=== PATIENT | female | born 1960 | race Caucasian/White ===

== ENCOUNTER 2018-08-03 08:55 | Inpatient (IN) | payer OTHER ==
[2018-08-03] MEDS ORDERED: HEPARIN SODIUM,PORCINE 5,000 UNIT/ML 1 ML VIAL IV STA (09:00)
[2018-08-03] MEDS ORDERED: IV FLUID CONTINUATION 300 ML IV ONE (09:05)
[2018-08-03] MEDS ORDERED: SODIUM CHLORIDE 0.9% 1,000 ML IV ONE (09:06)
[2018-08-03] MEDS ORDERED: LIDOCAINE 1% INJ 10MG/ML (20 ML MDV) SQ ONE (09:10)
[2018-08-03] MEDS ORDERED: MIDAZOLAM 2 MG/2 ML VIAL ONE (09:11)
[2018-08-03] MEDS ORDERED: TICAGRELOR 90 MG TAB PO ONE (09:12)
[2018-08-03] MEDS ORDERED: MIDAZOLAM 2 MG/2 ML VIAL IVP ONE (09:12)
[2018-08-03] MEDS ORDERED: BIVALIRUDIN BOLUS 250 MG/50 ML IV ONE (09:19)
[2018-08-03] MEDS ORDERED: BIVALIRUDIN 250 MG in SODIUM CHLORIDE 0.9% 50 ML IV ONE (09:20)
[2018-08-03] MEDS ORDERED: NITROGLYCERIN 1000MCG/10ML SYRINGE INTRACORON ONE (09:29)
[2018-08-03 09:37] LABS: Basophils % (A) 0 %; Eosinophils # (A) 0.4 k/uL (0-0.7); Eosinophils % (A) 3 %; HCT 36.2 % (34.0-46.0); HGB 12.6 gm/dL (11.4-16.0); Lymphocytes % (A) 30 %; MCH 32.1 pg (25.0-35.0); MCHC 34.7 g/dL (31.0-37.0); MCV 92.3 fL (80.0-100.0); Mean Platelet Volume 7.1; Monocytes # (A) 0.6 k/uL (0-1.0); Monocytes % (A) 3 %; Neutrophils # (A) 10.6 k/uL (1.3-7.7); Neutrophils % (A) 63 %; Platelet Count 377 k/uL (150-450); RBC 3.92 m/uL (3.80-5.40); RDW 13.8 % (11.5-15.5); WBC 16.8 k/uL (3.8-10.6)
[2018-08-03] MEDS ORDERED: IOPAMIDOL-370 125ML BTL INJ ONE (09:37)
[2018-08-03] MEDS ORDERED: IOPAMIDOL-370 100ML BTL INJ ONE (09:44)
[2018-08-03 09:47] LABS: Prothrombin Time 67.2 sec (9.0-12.0)
[2018-08-03] MEDS ORDERED: RX INFO: IV CONTRAST WAS GIVEN 1 EACH MISC MISCELLANE PRN (09:50)
[2018-08-03] MEDS ORDERED: ATROPINE SULFATE 0.1 MG/ML 10ML SYRINGE IV PRN (09:50)
[2018-08-03] MEDS ORDERED: MAG HYDROX/AL HYDROX/SIMETH 30 ML CUP PO PRN (09:50)
[2018-08-03] MEDS ORDERED: NITROGLYCERIN SL TABS 0.4 MG TAB SUBLINGUAL PRN (09:50)
[2018-08-03] MEDS ORDERED: ZOLPIDEM 5 MG TAB PO PRN (09:50)
[2018-08-03 09:52] LABS: Albumin 3.1 g/dL (3.5-5.0); Calcium 8.3 mg/dL (8.4-10.2); Potassium 3.4 mmol/L (3.5-5.1); Total Bilirubin 0.3 mg/dL (0.2-1.3); Total Protein 5.9 g/dL (6.3-8.2)
[2018-08-03] MEDS ORDERED: SODIUM CHLORIDE 0.9% 1,000 ML IV SCH (10:00)
--- NOTE | 2018-08-03 10:01 | CC ---
CARDIAC CATHETERIZATION REPORT Mrs Renner is a 58-year-old female who was transferred to the emergency room because of the chest pain. EKG was suggestive of acute inferior wall myocardial infarction. In view of that, the patient was brought to the lab scientist for primary angioplasty. DESCRIPTION OF THE PROCEDURE: The right groin was prepped and draped in the usual manner. The skin was infiltrated with 2% Xylocaine. The right femoral artery was entered using Seldinger technique. A #6-Thai sheath was placed in. Selective coronary angiography was then performed in multiple projections and the left ventricular pressures were obtained. Patient tolerated the procedure well. HEMODYNAMICS: Left ventricular end-diastolic pressure is 24 mmHg prior to angiography. No gradient is noted across the aortic valve. SELECTIVE CORONARY ANGIOGRAPHY: Left main coronary artery is normal and patent. LAD is a good caliber blood vessel and gives rise to a good size diagonal branch. LAD and its branches are normal. Circumflex coronary artery is small and non dominant. Right coronary artery is a large caliber blood vessel, it is dominant in distribution, has a 99% stenosis with evidence of . FINAL IMPRESSION: There is 99% stenosis in the proximal RCA. The LAD is normal. Circumflex coronary artery is nondominant. RECOMMENDATION: Proceed with a stent to the RCA. MMODL / IJN: [id number] /
--- NOTE | 2018-08-03 10:01 | CONS ---
CONSULTATION Mrs Renner is a 58-year-old female who was brought by ambulance to the emergency room because of the chest pain. The EKG done by EMS was suggestive of acute inferior wall myocardial infarction. The patient had received fentanyl, heparin and aspirin in the ambulance. This patient denies any prior cardiac history of myocardial infarction. She does have a history of smoking more than 1 pack per day. History of hypertension. She does not know about any cholesterol. She does not have any strong family history of coronary artery disease. PAST MEDICAL HISTORY: No history of any major surgeries. Denies any history of GI or bleeding. Denies any history of a stroke. REVIEW OF THE SYSTEM: Otherwise unremarkable. PHYSICAL EXAMINATION: At present, a 58-year-old, thinly built female who has been having a pain and 9/10. The heart rate is 50 per minute, blood pressure is 120/80 mmHg. HEENT examination is negative. Neck is supple. There is no increase in jugular venous pressure. Both the carotid pulses are felt. There is no bruit. Chest is symmetrical. Heart the PMI is not felt. First and second heart sounds are normal. There is no evidence of any murmur. Lungs are clinically clear to auscultation and percussion. Abdomen is soft. Liver and spleen are not enlarged. Bowel sounds are heard. EXTREMITIES: Peripheral pulsations are 2+ EKG shows normal sinus rhythm with a ST-segment elevation in the inferior lateral leads. FINAL IMPRESSION: Extensive inferior lateral myocardial infarction. RECOMMENDATION: Proceed for cardiac catheterization and primary angioplasty. MMODL / IJN: [id number] /
[2018-08-03 10:07] LABS: INR 7.3 (<1.2)
--- NOTE | 2018-08-03 10:07 | PTCA ---
PERCUTANEOUSTRANS CORORONARY ANGIOGRAPHY Mrs. Renner is a 58-year-old female with history of hypertension, chronic tobacco use, who presented with symptoms of chest discomfort and EKG changes consistent with inferior wall myocardial infarction. She underwent cardiac catheterization by Dr. Jean Lobo, which was found to have subtotally occluded mid right coronary artery. In view of that, recommendation made regarding coronary angioplasty. The procedures, risks and complication were discussed with the patient who is in full understanding and agreement. PROCEDURE: A 6-Macedonian FR4 guiding catheter was introduced into the system after cannulating the right coronary ostium, a 0.014 balanced medium weight J-wire was advanced and positioned distally. Following that, a 3.25 x 18 mm Xience CR stent was deployed, postdilated at 16 atmospheres. Following that, the balloon was removed and a 3.5 x 15 mm NC Trek balloon was advanced and one inflation at 14 atmospheres was done. After the last inflation, after appropriate wait, the balloon and the guidewire were withdrawn back in the guiding catheter. Images were obtained and repeated. Those images reveal stable successful stenting. At that point, the guiding catheter, the balloon and the guidewire were removed. The sheath was removed. Hemostasis was obtained with deployment of Angio-Seal. There was no immediate complication. Patient is returned to her room in stable condition. Of note, patient's chest discomfort resulted in procedure. She received Angiomax per protocol as well as oral loading dose of Brilinta. The EKG ST-segment elevation, resolved. RESULTS: Successful stenting of the mid right coronary artery with reduction of stenosis from 99% to 0%. RECOMMENDATION: Patient will be continued on aspirin, Brilinta, beta mariela, REBECCA inhibitor, and statin. The importance of dual antiplatelet treatment were discussed with the patient and she is in full understanding and agreement. I emphasized to her the importance of smoking cessation. MMODL / IJN: [id number] /
[2018-08-03 10:09] LABS: Creatine Kinase MB 0.9 ng/mL (0.0-2.4); Troponin I 0.031 ng/mL (0.000-0.034)
[2018-08-03 10:15] LABS: Glucose,Whole Blood 144 mg/dL (75-99)
[2018-08-03 13:20] VITALS: BMI 28.7
--- NOTE | 2018-08-03 13:26 | ED ---
Chest Pain HPI - General Stated Complaint: STEMI Time Seen by Provider: 08/03/18 08:55 Source: patient, EMS, RN notes reviewed Mode of arrival: EMS - History of Present Illness Initial Comments: This is a 58-year-old female with a benign history other than a smoker no prior cardiac history who had the onset this morning of retrosternal chest pain it radiates to the left arm. She states was 10/10 severity she was brought in by EMS as STEMI alert was called as the patient has to elevations in leads 23 aVF in addition to some anterolateral leads. She also had depression in aVL and the the leads. Patient was given IV fluids and pain medication with the pain down to 5/10. Dr. Lobo did respond . The patient went to Bed #3 after 5000 units of heparin was started in the emergency department. No other labs are treatment was given. MD Complaint: chest pain - Related Data Home Medications Medication Instructions Recorded Confirmed Atenolol [Tenormin] 25 mg PO HS 08/03/18 08/03/18 Triamterene-Hctz 37.5-25Mg 1 cap PO DAILY 08/03/18 08/03/18 [Dyazide 37.5-25 Capsule] amLODIPine [Norvasc] 10 mg PO HS 08/03/18 08/03/18 Allergies Allergy/AdvReac Type Severity Reaction Status Date / Time No Known Allergies Allergy Verified 08/03/18 11:55 Review of Systems ROS Statement: Those systems with pertinent positive or pertinent negative responses have been documented in the HPI. ROS Other: All systems not noted in ROS Statement are negative. EKG Findings - EKG Results: EKG: interpreted by ERMD (EKG provided by EMS did show ST elevations in leads II , III, and F aVF also some evidence of posterior lateral involvement. SD was 0.170 QRS 0.128 QT since QTC 440/416) Past Medical History Past Medical History: Coronary Artery Disease (CAD), Chest Pain / Angina, Hypertension Additional Past Medical History / Comment(s): CIGARETTE SMO[employer] 1PPD History of Any Multi-Drug Resistant Organisms: None Reported Past Surgical History: Breast Surgery, Section, Cholecystectomy, Heart Catheterization With Stent, Hysterectomy Additional Past Surgical History / Comment(s): RIGHT BREAST LUMPECTOMY, STENTS 08/03/18. Past Anesthesia/Blood Transfusion Reactions: No Reported Reaction Date of Last Stent Placement:: 08/03/18 Past Psychological History: No Psychological Hx Reported Smoking Status: Current every day smoker Past Alcohol Use History: None Reported Additional Past Alcohol Use History / Comment(s): 1PPD Past Drug Use History: None Reported Course Vital Signs 08/03/18 08/03/18 08/03/18 10:02 10:11 10:30 Temperature 97.6 F 97.6 F Pulse Rate 82 77 Respiratory 10 L 12 Rate Blood Pressure 132/78 O2 Sat by Pulse 93 L 92 L Oximetry Chest Pain MDM - MDM Patient went almost directed 5 after registration and IV heparin be started in emergency department. Disposition Clinical Impression: ST elevation myocardial infarction (STEMI) Disposition: ADMITTED IP TO THIS HOSP Condition: Critical
--- NOTE | 2018-08-03 14:55 | HP ---
HISTORY AND PHYSICAL CHIEF COMPLAINT: This is a 58-year-old female with a benign history other than smoking who came into the hospital with retrosternal chest pain radiating to the left arm, 06/27. STEMI alert was called. She was taken for PTCA cardiac catheter in the prosthetics lab technician and a stent was placed in the right coronary artery, 95% blockage down to zero. She is in the ICU at this time. She is stabilized. Her home medications are Tenormin, Norvasc and Dyazide. REVIEW OF SYSTEMS: Fourteen-point review of systems negative except for as mentioned in HPI. ALLERGIES: NEGATIVE. EKG in the ER showed ST elevations in 2, 3, AVF. PAST MEDICAL HISTORY: 1. Coronary artery disease. 2. Angina. 3. Hypertension. 4. She smokes one pack a day. 5. History of breast surgery. 6. . 7. Cholecystectomy. 8. Heart catheterization with stent. 9. Hysterectomy. 10.Right breast lumpectomy. 11.Stents as mentioned today. She is a current everyday smoker. No alcohol or illicit drugs. PHYSICAL EXAMINATION: Blood pressure is 132/78, oxygen 92% to 93%, pulse 77 to 82, temperature 97.6. CARDIOVASCULAR: S1, S2. LUNGS: Clear. GI: Soft. HEMATOLOGY: Negative Homans. PSYCH: Fair mood and affect. ASSESSMENT: 1. ST-elevation myocardial infarction. 2. History of coronary artery disease. 3. Hypertension. 4. Nicotine addiction. Risk factor modification status post stent will be done. Possible discharge in the next 24 to 48 hours. She came to the hospital with INR of 7.3, but despite this she was stented and will be followed up. Will check for diabetes and high cholesterol while here in the hospital. MMODL / IJN: [id number] /
[2018-08-03 20:34] LABS: Hemoglobin A1C 5.8 % (4.0-6.0)
[2018-08-03] MEDS: NICOTINE 21MG/24HR PATCH TRANSDERM SCH (20:35)
[2018-08-03] MEDS: ATORVASTATIN 80 MG TAB PO SCH (20:36)
[2018-08-03] MEDS: METOPROLOL TARTRATE 25 MG TAB PO SCH (20:36)
[2018-08-04 05:53] LABS: HCT 43.2 % (34.0-46.0); HGB 14.7 gm/dL (11.4-16.0); MCH 31.1 pg (25.0-35.0); MCHC 34.1 g/dL (31.0-37.0); MCV 91.2 fL (80.0-100.0); Platelet Count 401 k/uL (150-450); RBC 4.74 m/uL (3.80-5.40); RDW 13.7 % (11.5-15.5); WBC 13.6 k/uL (3.8-10.6)
[2018-08-04 06:00] LABS: Prothrombin Time 10.1 sec (9.0-12.0)
[2018-08-04 06:22] LABS: Anion Gap 7 mmol/L; Blood Urea Nitrogen 13 mg/dL (7-17); Calcium 9.6 mg/dL (8.4-10.2); Carbon Dioxide 25 mmol/L (22-30); Chloride 105 mmol/L (98-107); Cholesterol 286 mg/dL (<200); Glucose 127 mg/dL (74-99); HDL Cholesterol 36 mg/dL (40-60); LDL Cholesterol,Calculated 209 mg/dL (0-99); Magnesium 2.2 mg/dL (1.6-2.3); Potassium 4.3 mmol/L (3.5-5.1); Sodium 137 mmol/L (137-145); Triglycerides 205 mg/dL (<150)
[2018-08-04] MEDS: METOPROLOL TARTRATE 25 MG TAB PO SCH ×2 (08:55→21:32)
[2018-08-04] MEDS: NICOTINE 21MG/24HR PATCH TRANSDERM SCH (08:55)
[2018-08-04] MEDS: TICAGRELOR 90 MG TAB PO SCH ×2 (08:55→21:32)
[2018-08-04] MEDS: ASPIRIN 81 MG PO SCH (08:55)
[2018-08-04] MEDS: LISINOPRIL 5 MG TAB PO SCH (08:55)
--- NOTE | 2018-08-04 13:03 | P.PN ---
Subjective Progress Note Date: 08/04/18 This is a 58-year-old female who was admitted to the hospital with inferior wall myocardial infarction and had stent placement RCA by Dr. Reynoso. Patient has been doing well since yesterday. Denies any chest pain, shortness of breath or dizziness. Her groin is soft. Echo Cardigan showed severe hypokinesis of the anteroapical and mid and apical septal area with ejection fraction of 35%. Her lungs are clear. Heart is regular. Groin is soft. Patient activity to be increased. Patient will be transferred to telemetry unit. Her lab work showed a hemoglobin of 14.7. White count is 13,000. Electrolytes are normal. Objective - Vital Signs Vital signs: Vital Signs Temp 98.0 F 08/04/18 08:00 Pulse 75 08/04/18 12:00 Resp 18 08/04/18 12:00 BP 134/69 08/04/18 12:00 Pulse Ox 95 08/04/18 12:00 Intake & Output 08/03/18 08/04/18 08/04/18 18:59 06:59 18:59 Intake Total 1193 250 0 Output Total 2900 1700 0 Balance -1707 -1450 0 Weight 68.9 kg 61.4 kg Intake: IV 1193 0 0 Sodium Chloride 0.9% 1, 900 0 0 000 ml @ 100 mls/hr IV . Q10H MARCOS Rx#:[id number] Oral 250 Output: Urine 2900 1700 0 Other: # Voids 1 # Bowel Movements 1 - Exam GENERAL EXAM: Patient is alert and oriented and doesn't appear to be in any acute distress HEENT: Normocephalic. Normal reaction of pupils, equal size, normal range of extraocular motion. No erythema or exudates in the throat. NECK: No masses, no nuchal rigidity. CHEST: No chest wall deformity. LUNGS: Equal air entry with no crackles or wheeze. HEART: S1 and S2 normal with no audible mumurs or gallops. Regular rhythm, femorals equal on both sides.. ABDOMEN: No hepatosplenomegaly, normal bowel sounds, no guarding or rigidity. SKIN: No rashes CENTRAL NERVOUS SYSTEM: No focal deficits. EXTREMITIES: No cyanosis, clubbing or edema. PUNCTURE SITE: Soft without any hematoma - Labs CBC & Chem 7: 08/04/18 04:57 08/04/18 04:57 Labs: Abnormal Lab Results - Last 24 Hours (Table) 08/03/18 08/03/18 08/04/18 Range/Units 14:39 20:57 04:57 WBC (3.8-10.6) k/uL Glucose 127 H (74-99) mg/dL Troponin I 48.600 H* 57.600 H* (0.000-0.034) ng/mL Triglycerides 205 H (<150) mg/dL Cholesterol 286 H (<200) mg/dL LDL Cholesterol, Calc 209 H (0-99) mg/dL HDL Cholesterol 36 L (40-60) mg/dL 08/04/18 08/04/18 Range/Units 04:57 04:57 WBC 13.6 H (3.8-10.6) k/uL Glucose (74-99) mg/dL Troponin I 32.100 H* (0.000-0.034) ng/mL Triglycerides (<150) mg/dL Cholesterol (<200) mg/dL LDL Cholesterol, Calc (0-99) mg/dL HDL Cholesterol (40-60) mg/dL Assessment and Plan (1) Hypertension Current Visit: Yes Status: Acute Code(s): I10 - ESSENTIAL (PRIMARY) HYPERTENSION SNOMED Code(s): 81580488 (2) ST elevation myocardial infarction (STEMI) Current Visit: Yes Status: Acute Code(s): I21.3 - ST ELEVATION (STEMI) MYOCARDIAL INFARCTION OF [facility] [[email or web address]] SITE SNOMED Code(s): 839523900 Plan: Patient will continue current medical therapy with beta blockers, aspirin length and a lipid-lowering agent. Increase activity. Possible discharge within 48 hours. I
--- NOTE | 2018-08-04 16:51 | PN ---
PROGRESS NOTE This is a white female complaining of some diarrhea, 4 to 5 bowel movements a day. We are going to check stool for C difficile. We will give Imodium and possibly Lomotil if C difficile is negative. She is status post PTCA from Cardiology. Hemoglobin is 14.7, white count 13,000. Temperature 98, pulse 75, respiratory rate 16 to 18, blood pressure 134/69. LUNGS: Clear. CARDIOVASCULAR: S1, S2. ASSESSMENT: 1. Hypertension. 2. Diarrhea, unclear etiology. 3. [id number] myocardial infarction. Continue Imodium, Lomotil. Stool culture. Check electrolytes. Leukocytosis is down from 16 to 13. Please see further orders in chart. ICU time 20 minutes. MMODL / IJN: [id number] /
[2018-08-04] MEDS: LOPERAMIDE 2 MG CAP PO PRN (18:15)
[2018-08-04] MEDS: ATORVASTATIN 80 MG TAB PO SCH (21:32)
[2018-08-05] MEDS: LOPERAMIDE 2 MG CAP PO PRN ×4 (00:06→19:22)
[2018-08-05] MEDS: LISINOPRIL 5 MG TAB PO SCH (08:14)
[2018-08-05] MEDS: METOPROLOL TARTRATE 25 MG TAB PO SCH ×2 (08:14→20:07)
[2018-08-05] MEDS: TICAGRELOR 90 MG TAB PO SCH ×2 (08:14→20:07)
[2018-08-05] MEDS: ASPIRIN 81 MG PO SCH (08:14)
[2018-08-05] MEDS: NICOTINE 21MG/24HR PATCH TRANSDERM SCH (08:14)
[2018-08-05 08:18] LABS: Basophils # (A) 0.1 k/uL (0-0.2); Basophils % (A) 0 %; Eosinophils # (A) 0.1 k/uL (0-0.7); Eosinophils % (A) 1 %; HGB 15.5 gm/dL (11.4-16.0); Lymphocytes # (A) 3.1 k/uL (1.0-4.8); Lymphocytes % (A) 20 %; MCH 30.5 pg (25.0-35.0); MCHC 33.6 g/dL (31.0-37.0); MCV 90.8 fL (80.0-100.0); Mean Platelet Volume 7.2; Monocytes % (A) 6 %; Neutrophils # (A) 10.9 k/uL (1.3-7.7); Neutrophils % (A) 71 %; Platelet Count 427 k/uL (150-450); RBC 5.07 m/uL (3.80-5.40); RDW 13.5 % (11.5-15.5); WBC 15.4 k/uL (3.8-10.6)
[2018-08-05 08:20] LABS: Anion Gap 12 mmol/L; Blood Urea Nitrogen 18 mg/dL (7-17); Calcium 9.8 mg/dL (8.4-10.2); Carbon Dioxide 23 mmol/L (22-30); Chloride 106 mmol/L (98-107); Glucose 131 mg/dL (74-99); Sodium 141 mmol/L (137-145)
--- NOTE | 2018-08-05 08:50 | ECHOF ---
Referral Reason:mi MEASUREMENTS -------- HEIGHT: 154.9 cm WEIGHT: 61.2 kg BP: 128/97 IVSd: 1.0 cm (0.6 - 1.1) LVIDd: 2.8 cm (3.9 - 5.3) LVPWd: 1.3 cm (0.6 - 1.1) IVSs: 1.4 cm LVIDs: 2.2 cm LVPWs: 1.4 cm Ao Diam: 2.4 cm (2.0 - 3.7) AV Cusp: 1.3 cm (1.5 - 2.6) LA Diam: 1.9 cm (2.7 - 3.8) MV EXCURSION: 12.148 mm (> 18.000) MV EF SLOPE: 44 mm/s (70 - 150) EPSS: 1.3 cm MV E Juventino: 0.63 m/s MV DecT: 85 ms MV A Ju[place]ino: 0.87 m/s MV E/A Ratio: 0.72 RAP: 5.00 mmHg RVSP: 7.91 mmHg FINDINGS -------- Sinus rhythm. This was a technically difficult study with suboptimal views. The left ventricular size is normal. There is borderline concentric left ventricular hypertrophy. Overall left ventricular systolic function is mildly impaired with, an EF between 45 - 50 %. Basal inferior LV wall motion is normal. Basal inferoseptal LV wall motion is normal. The right ventricle is normal in size and function. The left atrium is normal in size. The right atrium is normal in size. xx ml of Lumason was utilized for enhancement of images. The aortic valve is trileaflet, and appears structurally normal. No aortic stenosis or regurgitation. There is trace mitral regurgitation. Trace tricuspid regurgitation present. The right ventricular systolic pressure, as measured by Dopp ler, is 7.91mmHg. Pulmonic valve appears structurally normal. The aortic root size is normal. The pericardium is normal. CONCLUSIONS -------- 1. Sinus rhythm. 2. This was a technically difficult study with suboptimal views. 3. The left ventricular size is normal. 4. There is borderline concentric left ventricular hypertrophy. 5. Basal inferior LV wall motion is normal. 6. Basal inferoseptal LV wall motion is normal. 7. The right ventricle is normal in size and function. 8. The left atrium is normal in size. 9. The right atrium is normal in size. 10. xx ml of Lumason was utilized for enhancement of images. 11. The aortic valve is trileaflet, and appears structurally normal. No aortic stenosis or regurgitat ion. 12. There is trace mitral regurgitation. 13. Trace tricuspid regurgitation present. 14. The right ventricular systolic pressure, as measured by Doppler, is 7.91mmHg. 15. Pulmonic valve appears structurally normal. 16. The aortic root size is normal. 17. The pericardium is normal. SEAT PACK INSPECTOR: Mikayla Hardy RDCS
--- NOTE | 2018-08-05 14:05 | P.PN ---
Subjective Progress Note Date: 08/05/18 This is a 58-year-old female who was admitted to the hospital with inferior wall myocardial infarction and had stent placement RCA by Dr. Reynoso. Patient has been doing well since yesterday. Denies any chest pain, shortness of breath or dizziness. Her groin is soft. Echo Cardigan showed severe hypokinesis of the anteroapical and mid and apical septal area with ejection fraction of 35%. Her lungs are clear. Heart is regular. Groin is soft. Patient activity to be increased. Patient will be transferred to telemetry unit. Her lab work showed a hemoglobin of 14.7. White count is 13,000. Electrolytes are normal. 08/05: Patient denies any chest pain at this time, no shortness of breath, no lightheadedness or dizziness. Triglycerides 205, cholesterol 286, LDL 209 and HDL 36. C. difficile toxin was negative. Plan to continue current medications and possible discharge tomorrow. Objective - Vital Signs Vital signs: Vital Signs Temp 97.8 F 08/05/18 07:44 Pulse 94 08/05/18 07:46 Resp 18 08/05/18 07:46 BP 110/74 08/05/18 07:44 Pulse Ox 94 L 08/05/18 07:44 Intake & Output 08/04/18 08/05/18 08/05/18 18:59 06:59 18:59 Intake Total 460 760 Output Total 0 Balance 460 760 Weight 60.8 kg Intake: IV 0 Sodium Chloride 0.9% 1, 0 000 ml @ 100 mls/hr IV . Q10H MARCOS Rx#:[id number] Oral 460 760 Output: Urine 0 Other: Voiding Method Toilet Toilet Toilet # Voids 1 1 # Bowel Movements 1 1 - Exam GENERAL EXAM: Patient is alert and oriented she is sitting up in a chair and does not appear to be in any acute distress HEENT: Normocephalic. Normal reaction of pupils, equal size, normal range of extraocular motion. No erythema or exudates in the throat. NECK: No masses, no nuchal rigidity. CHEST: No chest wall deformity. LUNGS: Equal air entry with no crackles or wheeze. HEART: S1 and S2 normal with no audible mumurs or gallops. Regular rhythm, femorals equal on both sides.. ABDOMEN: No hepatosplenomegaly, normal bowel sounds, no guarding or rigidity. SKIN: No rashes CENTRAL NERVOUS SYSTEM: No focal deficits. EXTREMITIES: No cyanosis, clubbing or edema. PUNCTURE SITE: Soft without any hematoma - Labs CBC & Chem 7: 08/05/18 07:25 08/05/18 07:25 Labs: Abnormal Lab Results - Last 24 Hours (Table) 08/05/18 08/05/18 Range/Units 07:25 07:25 WBC 15.4 H (3.8-10.6) k/uL Neutrophils # 10.9 H (1.3-7.7) k/uL BUN 18 H (7-17) mg/dL Glucose 131 H (74-99) mg/dL Assessment and Plan Plan: Inferior lateral myocardial infarction status post heart catheterization Hypertension. Hyperlipidemia. Tobacco use and dependence Plan: Continue aspirin 81 mg daily, Lipitor 80 mg at bedtime, lisinopril 5 mg daily, Lopressor 25 mg twice daily, Brilinta 90 mg twice daily. Continue nicotine patch. Continue cardiac monitoring. Possible discharge tomorrow. Nurse Practitioner note has been reviewed, I agree with a documented findings and plan of care. Patient was seen and examined.
[2018-08-05] MEDS: ATORVASTATIN 80 MG TAB PO SCH (20:07)
--- NOTE | 2018-08-05 23:32 | PN ---
PROGRESS NOTE DATE OF SERVICE: 08/05/2018. HISTORY: She has no chest pain or shortness of breath and is doing fair overall. PHYSICAL EXAMINATION: Respiratory rate is 18, pulse rate of 92, temperature 98 degrees Fahrenheit, blood pressure 112/82. HEENT is unremarkable. Chest is clear. Cardiovascular system is S1, S2. Abdomen is soft. There is no edema. LABS: Reveal a white count of 16.4, hemoglobin of 15.5, troponin of 32.1. IMPRESSION: 1. Acute myocardial infarction status post primary angioplasty. 2. Hypertension. 3. Diarrhea. PLAN: Continue her on the current medications which were reviewed. Increase activity level. As she is asymptomatic and doing better, discharge planning is possibly for tomorrow. MMODL / IJN: [id number] /
[2018-08-06] MEDS: ASPIRIN 81 MG PO SCH (07:59)
[2018-08-06] MEDS: LISINOPRIL 5 MG TAB PO SCH (07:59)
[2018-08-06] MEDS: METOPROLOL TARTRATE 25 MG TAB PO SCH (07:59)
[2018-08-06] MEDS: TICAGRELOR 90 MG TAB PO SCH (07:59)
[2018-08-06] MEDS: NICOTINE 21MG/24HR PATCH TRANSDERM SCH (07:59)
[2018-08-06 12:32] VITALS: BP 90/52; PULSE 71; RESP 16; TEMP 98.2
[2018-08-06] MEDS ORDERED: EZETIMIBE 10 MG TAB PO SCH (14:15)
--- NOTE | 2018-08-06 15:26 | P.PN ---
Subjective Progress Note Date: 08/06/18 This is a 58-year-old female who was admitted to the hospital with inferior wall ST elevation myocardial infarction and had stent placement to the RCA . Echocardiogram with Doppler study was performed which revealed an ejection fraction of 45-50%. Blood pressure today 90/50 with a heart rate in the 70s, 96 % on room air. White blood cell count 15.4, hemoglobin 15.5, platelet count 427. Sodium 141, potassium 4.0, BUN 18 and creatinine 0.8. Patient is currently on aspirin 81 mg daily, Lipitor 80 mg daily, Zetia 10 mg daily, lisinopril 5 mg daily, metoprolol 25 mg twice a day, nicotine patch, Brilinta 90 mg twice a day and sublingual nitroglycerin as needed for chest pain. Cholesterol level came back to be 286, triglycerides 205, LDL 209 and HDL 36. 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 Sodium was added today.Zetia was added today. Objective - Vital Signs Vital signs: Vital Signs Temp 98.2 F 08/06/18 12:00 Pulse 71 08/06/18 12:00 Resp 16 08/06/18 12:00 BP 90/52 08/06/18 12:00 Pulse Ox 96 08/06/18 12:00 Intake & Output 08/05/18 08/06/18 08/06/18 18:59 06:59 18:59 Intake Total 2120 740 Output Total 600 Balance 2120 140 Weight 61.1 kg Intake: IV 10 Invasive Line 1 10 Oral 2110 740 Output: Urine 600 Other: Voiding Method Toilet Toilet Toilet # Voids 2 1 - Exam PHYSICAL EXAMINATION: GENERAL: 58-year-old female in no acute distress at the time of my examination HEENT: Head is atraumatic, normocephalic. Pupils equal, round. Sclera anicteric. Conjunctiva are clear. Mucous membranes of the mouth are moist. Neck is supple. There is no elevated jugular venous pressure.] bruit is heard. HEART EXAMINATION: Heart S1, S2 normal. No murmur or gallop heard. CHEST EXAMINATION: Lungs are clear to auscultation and precussion. No chest wall tenderness is noted on palpation or with deep breathing. ABDOMEN: Soft, nontender. Bowel sounds are heard. No organomegaly noted. EXTREMITIES: 2+ peripheral pulses with no evidence of peripheral edema and no calf tenderness noted. NEUROLOGIC patient is awake, alert and oriented ?-3. . - Labs CBC & Chem 7: 08/05/18 07:25 08/05/18 07:25 Assessment and Plan Plan: Assessment and plan #[address] elevation myocardial infarction, status post angioplasty and stenting of the right coronary artery #2 hypertension #3 hyperlipidemia #4 nicotine dependence Plan Cardiology's perspective, patient may be able to be discharged home today. We will add Zetia 10 mg daily to her medication regime. Continue aspirin 81 mg daily, Brilinta 90 mg twice a day, Lipitor 80 mg daily, lisinopril 5 mg daily, Lopressor 25 mg twice a day, nicotine patch, and sublingual nitroglycerin as needed for chest pain. Follow-up appointment in the office with Dr. VC Lobo in one week. DNP note has been reviewed, I agree with a documented findings and plan of care. Patient was seen and examined.
--- NOTE | 2018-08-06 16:15 | CONS ---
CONSULTATION This patient is status post acute inferior wall myocardial infarction. Patient is doing fairly well. Denies any chest pain. Denies any shortness of breath. Patient's medical record was reviewed. Heart rate is 71 per minute, blood pressure 90/60 mmHg. First and second heart sounds are normal. Lungs are clinically clear to auscultation and percussion. Echocardiogram reveals small area of inferobasal and inferoseptal hypokinesia. We will continue the patient on current medications. MMODL / IJN: [id number] /
== END 2018-08-06 18:25 | disposition home or self-care (01) | DRG 247 ==
LOC: EC 08:55 → 2SICU 09:55 → 3SCARD 08-04 18:19
PROVIDERS: ADMIT Family Medicine; ATTEND Family Medicine
PROC: B2111ZZ Fluoroscopy of Multiple Coronary Arteries using Low Osmolar Contrast (ICD-10-PCS; 2018-08-03)
PROC: 027034Z Dilation of Coronary Artery, One Artery with Drug-eluting Intraluminal Device, Percutaneous Approach (ICD-10-PCS; principal; 2018-08-03 09:05)
PROC: 4A023N7 Measurement of Cardiac Sampling and Pressure, Left Heart, Percutaneous Approach (ICD-10-PCS; 2018-08-03 09:05)
DX: I21.19 ST elevation (STEMI) myocardial infarction involving other coronary artery of inferior wall (principal); D72.829 Elevated white blood cell count, unspecified; E78.5 Hyperlipidemia, unspecified; F17.210 Nicotine dependence, cigarettes, uncomplicated; F32.9 Major depressive disorder, single episode, unspecified; I10 Essential (primary) hypertension; I25.10 Atherosclerotic heart disease of native coronary artery without angina pectoris; R19.7 Diarrhea, unspecified; Z79.899 Other long term (current) drug therapy; Z90.710 Acquired absence of both cervix and uterus; Z90.49 Acquired absence of other specified parts of digestive tract; Z71.6 Tobacco abuse counseling
CPT/HCPCS: 36415; 80048; 80053; 80061; 82550; 82553; 83036; 83735; 84443; 84484; 85025; 85027; 85610; 87324; 93306; 93458; C1874

== ENCOUNTER → 2018-11-02 | Outpatient (CLI) | payer OTHER | LOC: LABWHC1 09:24 | PROVIDERS: ATTEND Internal Medicine Cardiovascular Disease | DX: I25.10 Atherosclerotic heart disease of native coronary artery without angina pectoris (principal) | CPT/HCPCS: 36415; 83704 ==

== ENCOUNTER 2019-03-27 11:22 | Emergency (ER) | payer OTHER ==
[2019-03-27] MEDS ORDERED: KETOROLAC 60 MG/2 ML VIAL IM STA (11:44)
--- NOTE | 2019-03-27 12:08 | ED ---
Abdominal Pain HPI - General Chief Complaint: Abdominal Pain Stated Complaint: abdominal pain, lower back pain Time Seen by Provider: 03/27/19 11:31 Source: patient Mode of arrival: ambulatory Limitations: no limitations - History of Present Illness Initial Comments: Patient is a 59-year-old female presenting to emergency Department with complaints of lower abdominal pain that started yesterday. Patient describes the pain as severe cramping with radiation to the right lower back. Patient states her lower back does not hurt to the touch. Patient's last menstrual cycle was about 15 years ago. Patient denies any urinary complaints at this time other than increase in frequency, but she states she has been drinking a lot of water. Patient denies nausea, vomiting, diarrhea, chest pain, shortness of breath. Patient has past abdominal surgical history of 2 C-sections, cholecystectomy, and partial hysterectomy. Patient's last bowel movement was today and was normal. No other complaints at this time. Patient states she took an ibuprofen yesterday with mild relief. - Related Data Previous Rx's Medication Instructions Recorded Aspirin 81 mg PO DAILY #30 chew 08/06/18 Atorvastatin [Lipitor] 80 mg PO HS #30 tab 08/06/18 Ezetimibe [Zetia] 10 mg PO DAILY tab 08/06/18 Ezetimibe [Zetia] 10 mg PO DAILY #30 tab 08/06/18 Lisinopril [Zestril] 5 mg PO DAILY #30 tab 08/06/18 Metoprolol Tartrate [Lopressor] 25 mg PO BID #60 tab 08/06/18 Nicotine 21Mg/24Hr Patch [Habitrol] 1 patch TRANSDERM DAILY #30 patch 08/06/18 Nitroglycerin Sl Tabs [Nitrostat] 0.4 mg SUBLINGUAL Q5M PRN #25 tab 08/06/18 Ticagrelor [Brilinta] 90 mg PO BID #60 tab 08/06/18 Zolpidem [Ambien] 5 mg PO HS PRN tab 08/06/18 Allergies Allergy/AdvReac Type Severity Reaction Status Date / Time No Known Allergies Allergy Verified 03/27/19 11:29 Review of Systems ROS Statement: Those systems with pertinent positive or pertinent negative responses have been documented in the HPI. ROS Other: All systems not noted in ROS Statement are negative. Past Medical History Past Medical History: Coronary Artery Disease (CAD), Chest Pain / Angina, Hypertension Additional Past Medical History / Comment(s): CIGARETTE SMO[employer] 1PPD History of Any Multi-Drug Resistant Organisms: None Reported Past Surgical History: Breast Surgery, Section, Cholecystectomy, Heart Catheterization With Stent, Hysterectomy Additional Past Surgical History / Comment(s): RIGHT BREAST LUMPECTOMY, STENTS 08/03/18. Past Anesthesia/Blood Transfusion Reactions: No Reported Reaction Date of Last Stent Placement:: 08/03/18 Past Psychological History: No Psychological Hx Reported Smoking Status: Current every day smoker Past Alcohol Use History: None Reported Past Drug Use History: None Reported General Exam - General Exam Comments Initial Comments: GENERAL: Well-appearing, well-nourished and in no acute distress. HEAD: Atraumatic, normocephalic. EYES: Pupils equal round and reactive to light, extraocular movements intact, sclera anicteric, conjunctiva are normal. ENT: TMs normal, nares patent, oropharynx clear without exudates. Moist mucous membranes. NECK: Normal range of motion, supple without lymphadenopathy or JVD. LUNGS: Breath sounds clear to auscultation bilaterally and equal. No wheezes rales or rhonchi. HEART: Regular rate and rhythm without murmurs, rubs or gallops. ABDOMEN: Tender to palpation in the lower abdomen, mostly suprapubic area. Soft, normoactive bowel sounds. No guarding, no rebound. No masses appreciated. No CVA tenderness. : Deferred EXTREMITIES: Normal range of motion, no pitting or edema. No clubbing or cyanosis. NEUROLOGICAL: Cranial nerves II through XII grossly intact. Normal speech, normal gait. PSYCH: Normal mood, normal affect. SKIN: Warm, Dry, normal turgor, no rashes or lesions noted. Limitations: no limitations Course Vital Signs 03/27/19 03/27/19 11:27 14:02 Temperature 97.8 F 97.1 F L Pulse Rate 75 71 Respiratory 16 18 Rate Blood Pressure 162/88 146/90 O2 Sat by Pulse 98 98 Oximetry Medical Decision Making - Medical Decision Making Patient is a 59-year-old female with complaints of suprapubic pain with radiation to the right 2 days. On exam patient is tender in the lower abdomen mostly suprapubic area. No CVA tenderness. Patient vital signs are stable, and afebrile. CBC, CMP, UA were ordered initially, all within normal limits. Computed tomography scan was then ordered and showed no significant acute findings. Discussed findings with patient and she was okay to be discharged. Discussed increasing fluids, Motrin for pain relief. Return parameters were discussed with the patient and she verbalized understanding. Case was discussed with Dr. Durham. - Lab Data Result diagrams: 03/27/19 12:02 03/27/19 12:02 Lab Results 03/27/19 03/27/19 03/27/19 Range/Units 11:55 12:02 12:02 WBC 8.5 (3.8-10.6) k/uL RBC 5.30 (3.80-5.40) m/uL Hgb 15.6 (11.4-16.0) gm/dL Hct 47.5 H (34.0-46.0) % MCV 89.7 (80.0-100.0) fL MCH 29.5 (25.0-35.0) pg MCHC 32.9 (31.0-37.0) g/dL RDW 14.2 (11.5-15.5) % Plt Count 282 (150-450) k/uL Neutrophils % 49 % Lymphocytes % 39 % Monocytes % 4 % Eosinophils % 6 % Basophils % 1 % Neutrophils # 4.1 (1.3-7.7) k/uL Lymphocytes # 3.3 (1.0-4.8) k/uL Monocytes # 0.3 (0-1.0) k/uL Eosinophils # 0.5 (0-0.7) k/uL Basophils # 0.1 (0-0.2) k/uL Sodium 142 (137-145) mmol/L Potassium 4.1 (3.5-5.1) mmol/L Chloride 110 H (98-107) mmol/L Carbon Dioxide 23 (22-30) mmol/L Anion Gap 9 mmol/L BUN 10 (7-17) mg/dL Creatinine 0.67 (0.52-1.04) mg/dL Est GFR (CKD-EPI)AfAm >90 (>60 ml/min/1.73 sqM) Est GFR (CKD-EPI)NonAf >90 (>60 ml/min/1.73 sqM) Glucose 109 H (74-99) mg/dL Calcium 9.7 (8.4-10.2) mg/dL Total Bilirubin 0.6 (0.2-1.3) mg/dL AST 19 (14-36) U/L ALT 18 (9-52) U/L Alkaline Phosphatase 114 (38-126) U/L Total Protein 7.5 (6.3-8.2) g/dL Albumin 4.6 (3.5-5.0) g/dL Urine Color Colorless Urine Appearance Clear (Clear) Urine pH 6.5 (5.0-8.0) Ur Specific [place] 1.002 (1.001-1.035) Urine Protein Negative (Negative) Urine Glucose (UA) Negative (Negative) Urine Ketones Negative (Negative) Urine Blood Negative (Negative) Urine Nitrite Negative (Negative) Urine Bilirubin Negative (Negative) Urine Urobilinogen <2.0 (<2.0) mg/dL Ur Leukocyte Esterase Negative (Negative) Disposition Clinical Impression: Abdominal pain Disposition: HOME SELF-CARE Condition: Stable Instructions (If sedation given, give patient instructions): Abdominal Pain (ED) Additional Instructions: Please return to the Emergency Department if symptoms worsen or any other concerns. Is patient prescribed a controlled substance at d/c from ED?: No Referrals: Juan José Dewey MD [Primary Care Provider] - 1-2 days
[2019-03-27] MEDS ORDERED: KETOROLAC 30 MG/ML 1 ML VIAL IVP STA ×2 (12:18)
[2019-03-27 12:19] LABS: Appearance,Urine Clear (Clear); Bilirubin,Urine Negative (Negative); Blood,Urine Negative (Negative); Color,Urine Colorless; Glucose,Urine (UA) Negative (Negative); Ketones,Urine Negative (Negative); Leukocyte Esterase,Urine Negative (Negative); Nitrite,Urine Negative (Negative); PH, Urine 6.5 (5.0-8.0); Protein,Urine Negative (Negative); Specific Gravity,Urine 1.002 (1.001-1.035); Urobilinogen,Urine <2.0 mg/dL (<2.0)
[2019-03-27 12:19] LABS: Basophils # (A) 0.1 k/uL (0-0.2); Basophils % (A) 1 %; Eosinophils # (A) 0.5 k/uL (0-0.7); Eosinophils % (A) 6 %; HCT 47.5 % (34.0-46.0); HGB 15.6 gm/dL (11.4-16.0); Lymphocytes # (A) 3.3 k/uL (1.0-4.8); Lymphocytes % (A) 39 %; MCH 29.5 pg (25.0-35.0); MCHC 32.9 g/dL (31.0-37.0); MCV 89.7 fL (80.0-100.0); Mean Platelet Volume 7.3; Monocytes # (A) 0.3 k/uL (0-1.0); Monocytes % (A) 4 %; Neutrophils # (A) 4.1 k/uL (1.3-7.7); Neutrophils % (A) 49 %; Platelet Count 282 k/uL (150-450); RDW 14.2 % (11.5-15.5); WBC 8.5 k/uL (3.8-10.6)
[2019-03-27 12:29] LABS: ALT 18 U/L (9-52); AST 19 U/L (14-36); African American GFR (CKD) >90 (>60 ml/min/1.73 sqM); Albumin 4.6 g/dL (3.5-5.0); Alkaline Phosphatase 114 U/L (38-126); Anion Gap 9 mmol/L; Blood Urea Nitrogen 10 mg/dL (7-17); Calcium 9.7 mg/dL (8.4-10.2); Carbon Dioxide 23 mmol/L (22-30); Chloride 110 mmol/L (98-107); Glucose 109 mg/dL (74-99); Potassium 4.1 mmol/L (3.5-5.1); Sodium 142 mmol/L (137-145); Total Bilirubin 0.6 mg/dL (0.2-1.3); Total Protein 7.5 g/dL (6.3-8.2)
--- NOTE | 2019-03-27 13:28 | CT ---
EXAMINATION TYPE: CT abdomen pelvis w con DATE OF EXAM: 03/27/2019 HISTORY: Abdominal pain, lower back pain CT DLP: 571.9mGycm Automated Exposure Control for Dose Reduction was Utilized. CONTRAST: CT scan of the abdomen and pelvis is performed without oral but with IV Contrast, patient injected wi th 100 ml mL of Isovue 300. COMPARISON: None FINDINGS: LUNG BASES: Mild linear scarring and/or atelectasis anteriorly in both lung bases is present. LIVER/GB: Cholecystectomy clips are seen. There is 2.0 cm hyperdense right hepatic lesion 06/13 which becomes isodense to adjacent draining hepatic veins on delayed images, flash filling hemangioma suspe cted. Finding can be confirmed with liver protocol contrast-enhanced MRI if desired. PANCREAS: No significant abnormality is seen. SPLEEN: No significant abnormality is seen. ADRENALS: No significant abnormality is seen. KIDNEYS: No significant abnormality is seen. BOWEL: Appendix within normal limits from base of cecum in the right pelvis. No suspicious bowel dila tation. UTERUS/ADNEXA: Uterus is surgically absent or markedly atrophic. Occasional scattered pelvic phleboli ths. LYMPH NODES: No greater than 1cm abdominal or pelvic lymph nodes are appreciated. OSSEOUS STRUCTURES: No significant abnormality is seen. OTHER: There is moderate mixed plaque in the abdominal aorta which is ectatic measuring up to 2.7 cm transversely axial image 29. IMPRESSION: No significant acute finding is seen to account for patient's clinical symptoms.
[2019-03-27 14:03] VITALS: BP 146/90; PULSE 71; RESP 18; TEMP 97.1
== END 2019-03-27 14:02 | disposition home or self-care (01) ==
LOC: EC 11:22
DX: R10.30 Lower abdominal pain, unspecified (principal); M54.5 Low back pain; R35.0 Frequency of micturition; F17.210 Nicotine dependence, cigarettes, uncomplicated; Z90.49 Acquired absence of other specified parts of digestive tract; Z95.5 Presence of coronary angioplasty implant and graft; Z90.710 Acquired absence of both cervix and uterus; Z53.8 Procedure and treatment not carried out for other reasons
CPT/HCPCS: 36415; 80053; 85025; 81003; 74177; 99284; 96374; J1885; Q9967

== ENCOUNTER → 2020-05-08 | Outpatient (CLI) | payer OTHER ==
[2020-05-08 13:19] LABS: HGB 15.6 gm/dL (11.4-16.0); MCHC 33.1 g/dL (31.0-37.0); MCV 93.6 fL (80.0-100.0); Mean Platelet Volume 7.6; Platelet Count 294 k/uL (150-450); RBC 5.02 m/uL (3.80-5.40); WBC 12.5 k/uL (3.8-10.6)
[2020-05-08 13:32] LABS: African American GFR (CKD) >90 (>60 ml/min/1.73 sqM); Anion Gap 10 mmol/L; Blood Urea Nitrogen 10 mg/dL (7-17); Carbon Dioxide 22 mmol/L (22-30); Chloride 107 mmol/L (98-107); Non-African American GFR(CKD) >90 (>60 ml/min/1.73 sqM); Potassium 4.3 mmol/L (3.5-5.1); Sodium 139 mmol/L (137-145)
== END | disposition home or self-care (01) ==
LOC: LABPAT 10:47
PROVIDERS: ATTEND Internal Medicine
DX: Z01.818 Encounter for other preprocedural examination (principal); I25.118 Atherosclerotic heart disease of native coronary artery with other forms of angina pectoris
CPT/HCPCS: 80051; 82565; 84520; 85027

== ENCOUNTER → 2020-10-21 | Outpatient (CLI) | payer OTHER ==
--- NOTE | 2020-10-21 07:43 | MR ---
EXAMINATION TYPE: MR lumbar spine wo con DATE OF EXAM: 10/21/2020 COMPARISON: CT abdomen and pelvis March 27, 2019 HISTORY: Idiopathic scoliosis, lumbar, neuropathy, lumbago, bilateral sciatica TECHNIQUE: Multiplanar, multisequence imaging of the lumbar spine is performed without IV contrast. FINDINGS: Sagittal images of the lumbar spine show vertebral body heights and alignment to appear sat isfactory. Multilevel disc desiccation but the disc space heights are fairly well-maintained. The co nus medullaris is normal in position and signal ending mid L1 level. The bone marrow signal intensit y is within normal limits. Axial images show T12-L1, L1-L2, and L2-L3 levels all to appear within normal limits. Axial images at the L3-L4 level show mild broad disc bulge minimally effacing anterior thecal sac. Sm all left foraminal disc protrusion component causing mild left-sided anterior inferior neural foramin al narrowing. Mild facet degenerative changes bilaterally. Axial images at the L4-L5 level show mild to moderate facet degenerative changes, spinal canal preser tanvi, patent bilateral neural foramina. Axial images at L5-S1 level show mild to moderate facet degenerative changes bilaterally. No disc her niation. Paraspinal muscle bulk is preserved. IMPRESSION: Alignment satisfactory. [id number] multilevel degenerative changes in the mid to lo wer lumbar spine as detailed above. Small disc herniation L3-L4 level.
== END | disposition home or self-care (01) ==
LOC: RADMRIMAIN 06:06
PROVIDERS: ATTEND Nurse Practitioner Family
DX: M51.26 Other intervertebral disc displacement, lumbar region (principal); M47.816 Spondylosis without myelopathy or radiculopathy, lumbar region; M41.26 Other idiopathic scoliosis, lumbar region; G62.9 Polyneuropathy, unspecified; G89.29 Other chronic pain; M54.41 Lumbago with sciatica, right side; M54.42 Lumbago with sciatica, left side
CPT/HCPCS: 72148

== ENCOUNTER 2021-03-09 11:12 | Emergency (ER) | payer OTHER ==
[2021-03-09 11:22] VITALS: BP 133/76; PULSE 73; RESP 16; TEMP 97.8
[2021-03-09] MEDS ORDERED: HYDROmorphone 1 MG/ML 1 ML SYRINGE IM STA (11:34)
--- NOTE | 2021-03-09 12:00 | ED ---
Back Pain HPI - General Chief Complaint: Back Pain/Injury Stated Complaint: back pain Time Seen by Provider: 03/09/21 11:23 Source: patient, RN notes reviewed Limitations: no limitations - History of Present Illness Initial Comments: 61-year-old female presents emergency Department with chief complaint of low back pain. Patient states is chronic back pain states that she was pushing against a wooden board to close follow-up bed and states that she felt a pop in her back she states that 2 days ago. She denies any bowel bladder incontinence or retention. Patient takes [place] and Neurontin at home. She has had prior injections. Denies any lower shunted paresthesias, saddle anesthesias, lower extremity weakness. Patient's pain is better at rest. - Related Data Home Medications Medication Instructions Recorded Confirmed Albuterol Inhaler [Ventolin Hfa 1 puff INHALATION RT-QID PRN 05/11/20 03/09/21 Inhaler] Cetirizine HCl [Zyrtec] 10 mg PO DAILY 05/11/20 03/09/21 amLODIPine [Norvasc] 5 mg PO BID 05/11/20 03/09/21 traZODone HCL [Desyrel] 100 mg PO HS 05/11/20 03/09/21 ALPRAZolam [Xanax] 0.25 mg PO DAILY PRN 03/09/21 03/09/21 Fluticasone/Salmeterol [Advair 1 puff INHALATION RT-BID 03/09/21 03/09/21 250-50 Diskus] Gabapentin [Neurontin] 300 mg PO TID 03/09/21 03/09/21 Lisinopril [Zestril] 20 mg PO DAILY 03/09/21 03/09/21 busPIRone HCL 10 mg PO BID 03/09/21 03/09/21 tiZANidine HCL [Zanaflex] 2 mg PO BID 03/09/21 03/09/21 Previous Rx's Medication Instructions Recorded Aspirin 81 mg PO DAILY #30 chew 08/06/18 Atorvastatin [Lipitor] 80 mg PO HS #30 tab 08/06/18 Ezetimibe [Zetia] 10 mg PO DAILY #30 tab 08/06/18 Metoprolol Tartrate [Lopressor] 25 mg PO BID #60 tab 08/06/18 Cyclobenzaprine [Flexeril] 10 mg PO TID PRN #15 tab 03/09/21 predniSONE 50 mg PO DAILY #5 tab 03/09/21 Allergies Allergy/AdvReac Type Severity Reaction Status Date / Time No Known Allergies Allergy Verified 03/09/21 11:56 Review of Systems ROS Statement: Those systems with pertinent positive or pertinent negative responses have been documented in the HPI. ROS Other: All systems not noted in ROS Statement are negative. Past Medical History Past Medical History: Coronary Artery Disease (CAD), Chest Pain / Angina, Hypertension Additional Past Medical History / Comment(s): CIGARETTE SMOKER 1PPD History of Any Multi-Drug Resistant Organisms: None Reported Past Surgical History: Breast Surgery, Section, Cholecystectomy, Heart Catheterization With Stent, Hysterectomy Additional Past Surgical History / Comment(s): RIGHT BREAST LUMPECTOMY, STENTS 08/03/18. Past Anesthesia/Blood Transfusion Reactions: No Reported Reaction Date of Last Stent Placement:: 08/03/18 Past Psychological History: No Psychological Hx Reported Smoking Status: Current every day smoker Past Alcohol Use History: None Reported Past Drug Use History: Marijuana General Exam Limitations: no limitations General appearance: alert, in no apparent distress Head exam: Present: atraumatic, normocephalic, normal inspection Respiratory exam: Present: normal lung sounds bilaterally. Absent: respiratory distress, wheezes, rales, rhonchi, stridor Cardiovascular Exam: Present: regular rate, normal rhythm, normal heart sounds. Absent: systolic murmur, diastolic murmur, rubs, gallop, clicks GI/Abdominal exam: Present: soft, normal bowel sounds. Absent: distended, tenderness, guarding, rebound, rigid Extremities exam: Present: other (Lower extremity strength equal bilaterally neurovascular intact equal color and equal warmth) Neurological exam: Present: alert, oriented X3, reflexes normal. Absent: motor sensory deficit Skin exam: Present: warm, dry, intact, normal color. Absent: rash Course Vital Signs 03/09/21 11:18 Temperature 97.8 F Pulse Rate 73 Respiratory 16 Rate Blood Pressure 133/76 O2 Sat by Pulse 98 Oximetry Medical Decision Making - Medical Decision Making X-rays are negative for acute change. Patient provided pain control. Patient discharged in stable condition patient has no red flag symptoms Disposition Clinical Impression: Strain of lumbar region Disposition: HOME SELF-CARE Condition: Stable Instructions (If sedation given, give patient instructions): Acute Low Back Pain (ED) Additional Instructions: Please return to the Emergency Department if symptoms worsen or any other concerns. Prescriptions: Cyclobenzaprine [Flexeril] 10 mg PO TID PRN #15 tab PRN Reason: Muscle Spasm predniSONE 50 mg PO DAILY #5 tab Is patient prescribed a controlled substance at d/c from ED?: No Referrals: Juan José Dewey MD [Primary Care Provider] - 1-2 days Time of Disposition: 12:31
--- NOTE | 2021-03-09 12:27 | XR ---
EXAMINATION TYPE: XR lumbosacral spine min 4V DATE OF EXAM: 03/09/2021 CLINICAL HISTORY: pain COMPARISON: NONE TECHNIQUE: Frontal, lateral, and oblique images of the lumbar spine are obtained. FINDINGS: There are 5 lumbar type vertebral bodies identified. The lumbar spine shows satisfactory alignment without evidence of acute fracture or dislocation. Vertebral body heights are within normal limits. Disc spaces are well preserved. The overlying soft tissue appears unremarkable. IMPRESSION: No acute fracture or dislocation is seen in the lumbar spine.ICD 10 NO FRACTURE, INITIAL EVALUATION
== END 2021-03-09 12:39 | disposition home or self-care (01) ==
LOC: EC 11:12
DX: S39.012A Strain of muscle, fascia and tendon of lower back, initial encounter (principal); I10 Essential (primary) hypertension; I25.10 Atherosclerotic heart disease of native coronary artery without angina pectoris; F17.210 Nicotine dependence, cigarettes, uncomplicated; F12.90 Cannabis use, unspecified, uncomplicated; Z79.82 Long term (current) use of aspirin; X50.0XXA Overexertion from strenuous movement or load, initial encounter
CPT/HCPCS: 72110; 99283; 96372; J1170